=== PATIENT | male | born 1945 | race Caucasian/White ===

== ENCOUNTER 2016-11-09 13:51 | Emergency (ER) | payer MEDICARE ==
[2016-11-11] MEDS ORDERED: PLAVIX 75 MG TA75 MG PO (11:11)
[2016-11-11] MEDS ORDERED: IBUPROFEN800 MG PO (11:11)
[2016-11-11] MEDS ORDERED: OMEPRAZOLE20 M1 PO (11:11)
[2016-11-11] MEDS ORDERED: ASPIR 8181 MG PO (11:11)
[2016-11-11] MEDS ORDERED: NORCO 5-325 TA1 EACH PO (11:13)
[2016-11-11] MEDS ORDERED: NORVASC 5 MG TAB5 MG PO (11:14)
[2016-11-11] MEDS ORDERED: LIPITOR TAB 2020 MG PO (11:14)
[2016-11-11] MEDS ORDERED: HYDROCHLOROTHIA25 MG PO (11:15)
[2016-11-11] MEDS ORDERED: COLACE 100MG C100 MG PO (11:15)
[2016-11-11] MEDS ORDERED: LISINOPRIL40 MG PO (11:16)
[2016-11-11] MEDS ORDERED: TOPROL XL100 MG PO (11:16)
[2016-11-11] MEDS ORDERED: NITROSTAT 0.40.4 MG SL (11:19)
[2016-11-11] MEDS ORDERED: AMOXICILLIN500 MG PO (11:19)
== END 2016-11-09 17:26 | disposition home or self-care (01) ==
LOC: ER1 13:51
DX: S61.201A Unspecified open wound of left index finger without damage to nail, initial encounter (principal); I11.9 Hypertensive heart disease without heart failure; Z79.82 Long term (current) use of aspirin; Z79.899 Other long term (current) drug therapy; Z95.5 Presence of coronary angioplasty implant and graft; W23.0XXA Caught, crushed, jammed, or pinched between moving objects, initial encounter
CPT/HCPCS: 36415; 73130; 90471; 90714; 96374; 99283; J0690; J7050

== ENCOUNTER → 2016-11-11 | Day surgery (SDC) | payer OTHER ==
[~2016-11-11] VITALS: Ht 167.6 cm; Wt 86.2 kg
[~2016-11-11] MED LIST: AMOXICILLIN500 MG PO; ASPIR 8181 MG PO; COLACE 100MG C100 MG PO; HYDROCHLOROTHIA25 MG PO; IBUPROFEN800 MG PO; LIPITOR TAB 2020 MG PO; LISINOPRIL40 MG PO; NITROSTAT 0.40.4 MG SL; NORCO 5-325 TA1 EACH PO; NORVASC 5 MG TAB5 MG PO; OMEPRAZOLE20 M1 PO; PLAVIX 75 MG TA75 MG PO; TOPROL XL100 MG PO
[2016-11-11 10:42] LABS: HEMOGLOBIN 15.4 gm/dl (14.0-17.5); RED BLOOD COUNT 5.28 M/UL (4.20-5.50); WHITE BLOOD COUNT 11.6 K/UL (4.5-11.0)
[2016-11-11 11:07] LABS: BUN/CREATININE RATIO 19 (0-10)
== END | disposition home or self-care (01) ==
LOC: OR 10:01
PROVIDERS: Orthopaedic Surgery
PROC: 0PBV0ZZ Excision of Left Finger Phalanx, Open Approach (ICD-10-PCS; 2016-11-11)
PROC: 0HBQXZZ Excision of Finger Nail, External Approach (ICD-10-PCS; principal; 2016-11-11 21:00)
DX: S68.121A Partial traumatic metacarpophalangeal amputation of left index finger, initial encounter (principal); I10 Essential (primary) hypertension; E78.5 Hyperlipidemia, unspecified; K21.9 Gastro-esophageal reflux disease without esophagitis; I25.10 Atherosclerotic heart disease of native coronary artery without angina pectoris; I25.119 Atherosclerotic heart disease of native coronary artery with unspecified angina pectoris; J44.9 Chronic obstructive pulmonary disease, unspecified; F17.210 Nicotine dependence, cigarettes, uncomplicated; Z79.82 Long term (current) use of aspirin; Z79.899 Other long term (current) drug therapy; Z79.02 Long term (current) use of antithrombotics/antiplatelets; Z90.49 Acquired absence of other specified parts of digestive tract; Z95.1 Presence of aortocoronary bypass graft; Z95.5 Presence of coronary angioplasty implant and graft
CPT/HCPCS: 36415; 71010; 80048; 85027; 93005; J0690; J2795; J3010; J7120

== ENCOUNTER → 2021-06-10 | Outpatient (CLI) | payer MEDICARE ==
[~2021-06-10] MED LIST changes: +TORADOL 10 MG T10 MG PO; +ZOFRAN4 MG PO
[2021-06-10 13:25] LABS: HEMOGLOBIN 15.4 gm/dl (14.0-17.5); RED BLOOD COUNT 4.88 M/UL (4.20-5.50); WHITE BLOOD COUNT 13.3 K/UL (4.5-11.0)
== END ==
LOC: LAB 11:57
PROVIDERS: Physician Assistant
DX: I10 Essential (primary) hypertension (principal)
CPT/HCPCS: 36415; 80053; 80061; 85025

== ENCOUNTER 2021-06-11 18:07 | Emergency (ER) | payer MEDICARE ==
[2021-06-11 20:29] LABS: HEMOGLOBIN 14.6 gm/dl (14.0-17.5); RED BLOOD COUNT 4.68 M/UL (4.20-5.50); WHITE BLOOD COUNT 11.7 K/UL (4.5-11.0)
== END 2021-06-12 04:26 | disposition home or self-care (01) ==
LOC: ER1 18:07
PROVIDERS: Physician Assistant; Physician Assistant Medical
DX: N17.9 Acute kidney failure, unspecified (principal); R19.7 Diarrhea, unspecified; Z20.822 Contact with and (suspected) exposure to COVID-19; F17.210 Nicotine dependence, cigarettes, uncomplicated
CPT/HCPCS: 0240U; 80048; 80053; 81001; 83605; 83690; 85025; 94644; 94760; 99284; J7030

== ENCOUNTER → 2021-07-06 | Outpatient (CLI) | payer MEDICARE | LOC: KOH-I 11:30 | DX: Z12.2 Encounter for screening for malignant neoplasm of respiratory organs (principal); F17.210 Nicotine dependence, cigarettes, uncomplicated; R91.8 Other nonspecific abnormal finding of lung field | CPT/HCPCS: 71271 ==

== ENCOUNTER → 2021-10-20 | Outpatient (CLI) | payer MEDICARE | LOC: KOH-I 09:52 | DX: R91.8 Other nonspecific abnormal finding of lung field (principal) | CPT/HCPCS: 71250 ==

== ENCOUNTER 2022-01-16 09:42 | Emergency (ER) | payer MEDICARE ==
[~2022-01-16] VITALS: Ht 165.1 cm; Wt 86.2 kg
[2022-01-16 10:33] LABS: HEMOGLOBIN 15.2 gm/dl (14.0-17.5); RED BLOOD COUNT 4.99 M/UL (4.20-5.50); WHITE BLOOD COUNT 10.3 K/UL (4.5-11.0)
[2022-01-16] MEDS ORDERED: COLCHICINE0.6 M1 PO (12:14)
== END 2022-01-16 12:31 | disposition home or self-care (01) ==
LOC: ER1 09:42
PROVIDERS: Emergency Medicine
DX: M10.9 Gout, unspecified (principal); N19 Unspecified kidney failure; I25.10 Atherosclerotic heart disease of native coronary artery without angina pectoris; E78.5 Hyperlipidemia, unspecified; I10 Essential (primary) hypertension; F17.200 Nicotine dependence, unspecified, uncomplicated
CPT/HCPCS: 73630; 80053; 84550; 85025; 85652; 86140; 99283

== ENCOUNTER → 2022-02-18 | Outpatient (CLI) | payer MEDICARE ==
[~2022-02-18] MED LIST changes: +COLCHICINE0.6 M1 PO
== END ==
LOC: KOH-I 02-10 09:30
DX: R91.8 Other nonspecific abnormal finding of lung field (principal)
CPT/HCPCS: 71250